=== PATIENT | male | born 1950 | race Two or more races ===

== ENCOUNTER 2016-11-04 16:16 | Emergency (ER) | payer MEDICARE, OTHER ==
[2016-11-04 17:47] LABS: SPECIFIC GRAVITY 1.015 (1.001-1.030); URINE BILIRUBIN NEGATIVE (NEGATIVE); URINE BLOOD 1+ (NEGATIVE); URINE GLUCOSE (UA) NEGATIVE (NEGATIVE); URINE LEUKOCYTE ESTERASE 1+ (NEGATIVE); URINE NITRITE NEGATIVE (NEGATIVE); URINE PROTEIN 2+ (NEGATIVE); URINE UROBILINOGEN NORMAL (0-1 mg/dl)
[2016-11-04 17:51] LABS: URINE APPEARANCE TURBID; URINE COLOR DARK YELLOW
[2016-11-04 18:12] LABS: URINE BACTERIA 4+; URINE EPITHELIAL CELLS 0-2 /hpf; URINE WBC 25-50 /hpf
[2016-11-04] MEDS ORDERED: CEPHALEXIN 500 MG CAPSULE ONE (18:43)
== END 2016-11-04 19:11 | disposition home or self-care (01) ==
LOC: ED 16:16
DX: N39.0 Urinary tract infection, site not specified (principal); I10 Essential (primary) hypertension; F03.90 Unspecified dementia, unspecified severity, without behavioral disturbance, psychotic disturbance, mood disturbance, and anxiety
CPT/HCPCS: 87086; 81001; 99283 ×2; A9270